=== PATIENT | female | born 1945 | race Caucasian/White ===

== ENCOUNTER → 2017-02-16 | Outpatient (CLI) | payer MEDICARE, OTHER | LOC: US 09:30 | DX: I70.0 Atherosclerosis of aorta (principal); K76.89 Other specified diseases of liver | CPT/HCPCS: 76706; 93979 ==

== ENCOUNTER → 2021-02-07 | Outpatient (CLI) | payer OTHER ==
[~2021-02-07] MED LIST: BENICAR5 MG PO; CELEBREX200 MG PO; FLONASE NASAL SPRAY; LEVOTHYROXINE50 MCG PO; LEXAPRO TAB 1010 MG PO; MAGNESIUM400 M2 PO; PERCOCET 5-3251 EACH PO; POTASSIUM PO; PROTONIX40 MG PO; VITAMIN B12 COMPLEX PO; VITAMIN D PO
== END ==
LOC: ECHO 09:00
DX: I10 Essential (primary) hypertension (principal); R53.83 Other fatigue
CPT/HCPCS: ECHO; 93306

== ENCOUNTER 2021-07-05 15:10 | Emergency (ER) | payer OTHER ==
[2021-07-05] MEDS ORDERED: HYDROCODON-ACE1 EAC4 PO (17:55)
== END 2021-07-05 18:24 | disposition home or self-care (01) ==
LOC: ER1 15:10
DX: S40.012A Contusion of left shoulder, initial encounter (principal); X58.XXXA Exposure to other specified factors, initial encounter; Y92.009 Unspecified place in unspecified non-institutional (private) residence as the place of occurrence of the external cause
CPT/HCPCS: 73030; 73060; 99283

== ENCOUNTER 2022-02-02 16:55 | Emergency (ER) | payer OTHER ==
[~2022-02-02 16:55] MED LIST changes: +HYDROCODON-ACE1 EAC4 PO
[2022-02-02 18:48] LABS: HEMOGLOBIN 12.8 gm/dl (12.3-15.3); RED BLOOD COUNT 4.3 M/UL (4.00-5.10); WHITE BLOOD COUNT 6.5 K/UL (4.5-11.0)
[2022-02-02 19:35] LABS: BUN/CREATININE RATIO 31 (0-10)
[2022-02-02] MEDS ORDERED: CEPHALEXIN500 M1 PO (20:40)
== END 2022-02-02 21:00 | disposition home or self-care (01) ==
LOC: ER1 16:55
PROVIDERS: Physician Assistant
DX: S09.90XA Unspecified injury of head, initial encounter (principal); S40.012A Contusion of left shoulder, initial encounter; S50.02XA Contusion of left elbow, initial encounter; R32 Unspecified urinary incontinence; I10 Essential (primary) hypertension; E03.9 Hypothyroidism, unspecified; F41.9 Anxiety disorder, unspecified; Z88.0 Allergy status to penicillin; Z88.2 Allergy status to sulfonamides; Z88.5 Allergy status to narcotic agent; W19.XXXA Unspecified fall, initial encounter
CPT/HCPCS: 70450; 72125; 72128; 72131; 73030; 73080; 80053; 81001; 85025; 87086; 99284